=== PATIENT | female | born 1960 | race Caucasian/White ===

== ENCOUNTER 2022-12-31 18:08 | Emergency (ER) | payer OTHER ==
[~2022-12-31 18:08] MED LIST: Iopamidol-370 76% 500 ML MDV (1 ML CHARGE) ONE
[2022-12-31] MEDS ORDERED: Acetaminophen 325 MG TAB ONE (19:16)
[2022-12-31 19:43] LABS: SARS-CoV-2 NAA Rapid Test DETECTED (NotDetected)
[2022-12-31 19:48] LABS: Hematocrit 37.9 % (36.0-47.0); Hemoglobin 12.5 g/dL (12.0-16.0); Manual Diff?? YES; Mean Corpuscular Hemoglobin 32.6 pg (27.0-31.0); Mean Platelet Volume 10.2 fL (7.4-10.4); Platelet Count 170 10x3/uL (130-400); RBC Distribution Width 13.7 % (11.5-14.5); Red Blood Cell (RBC) Count 3.83 mill/uL (4.20-5.40); White Blood Cell (WBC) Count 5.5 10x3/uL (4.8-10.8)
[2022-12-31 19:58] LABS: Delete Auto Diff?? YES
[2022-12-31 20:13] LABS: ALT (SGPT) 16 U/L (8-55); AST (SGOT) 25 U/L (5-34); Albumin 4.3 g/dL (3.4-4.8); Alkaline Phosphatase 80 U/L (40-110); Anion Gap 11 mmol/L (10-20); BUN (Urea Nitrogen) 11 mg/dL (9.8-20.1); Bilirubin, Total 0.4 mg/dL (0.2-1.2); Calc. Creatinine Clearance 0 mL/min (70-130); Carbon Dioxide 24 mmol/L (23-31); Chloride 106 mmol/L (98-107); Estimated GFR 83; Globulin 2.9 g/dL (2.4-3.5); Glucose 86 mg/dL (80-115); Potassium 4.3 mmol/L (3.5-5.1); Protein, Total 7.2 g/dL (5.8-8.1); Sodium 137 mmol/L (136-145)
[2022-12-31 20:16] LABS: Troponin I Less than 0.010 ng/mL (< 0.028)
[2022-12-31 20:17] LABS: CellaVision Operator ID LAB.CLH1; Eosinophils 2 % (0-10); Lymphocytes 57 % (21-51); Monocytes 12 % (0-10); Neutrophil 29 % (42-75); Platelet Adequacy Comment Platelets Normal; Total Cell Count 101
[2022-12-31] MEDS ORDERED: Ketorolac Tromethamine 30 MG/ML VIAL ONE (22:24)
== END 2022-12-31 23:23 | disposition home or self-care (01) ==
LOC: ERS 18:08
DX: U07.1 COVID-19 (principal); R07.9 Chest pain, unspecified; Z20.822 Contact with and (suspected) exposure to COVID-19
CPT/HCPCS: 36415; 71045; 71275; 80053; 84484; 85025; 85379; 93005; 96374; J1885; Q9967